=== PATIENT | male | born 1935 | race Caucasian/White ===

== ENCOUNTER 2020-12-02 12:13 | Emergency (ER) | payer MEDICARE, OTHER ==
[2005-08-25 17:40] VITALS: BP 148/78
[~2020-12-02] VITALS: Ht 165.1 cm; Wt 52.3 kg
[~2020-12-02 12:13] MED LIST: MELOXICAM; TAMULOSIN
[2020-12-02 12:18] VITALS: TEMP 97.7
[2020-12-02 12:42] LABS: BASO # 0.1 (0.0-0.2); BASO % 0.6 % (0.0-2.0); EOS # 0.1 (0.0-0.7); EOS % 1.6 % (0-4.0); GRAN # 5.8 (1.4-6.5); GRAN % 73.5 % (42.2-75.2); HEMOGLOBIN 11.8 g/dl (13.5-18.0); LYMPH # 1.3 (1.2-3.4); LYMPH % 16.4 % (20.0-51.0); MEAN CELL VOLUME 92 fl (80.0-100.0); MEAN CORPUSCULAR HEMOGLOBIN 30 pg (27.0-31.0); MEAN CORPUSCULAR HGB CONC 33 g/dl (33.0-37.0); MEAN PLATELET VOLUME 10.8 fl (7.4-10.4); MONO # 0.6 (0.1-0.6); MONO % 7.5 % (1.7-9.3); PLATELET COUNT 263 K/mm3 (130-400); RED BLOOD COUNT 3.88 M/mm3 (4.20-5.60); REDCELL DISTRIBUTION WIDTH-CV 13.2 % (11.5-14.5)
[2020-12-02 12:49] LABS: HEMATOCRIT 35.6 % (42.0-52.0)
[2020-12-02 13:05] LABS: ALANINE AMINOTRANSFERASE 10 U/L (4-49); ALBUMIN 4.2 gm/dL (3.5-5.0); ALKALINE PHOSPHATASE 48 U/L (50-136); ANION GAP 11 mmol/L (7-16); AST,SGOT 25 U/L (15-37); BILIRUBIN,TOTAL 0.5 mg/dL (0.0-1.0); BLOOD UREA NITROGEN 41 mg/dL (9-20); CALCIUM 9.6 mg/dL (8.4-10.2); CARBON DIOXIDE 27 mmol/L (22-30); CHLORIDE 92 mmol/L (98-107); CREATININE, serum 1.37 (0.66-1.25); GLUCOSE 148 mg/dL (74-106); LIPASE 197 U/L (23-300); POTASSIUM 4.6 mmol/L (3.4-5.0); SODIUM 130 mmol/L (137-145); TOTAL PROTEIN 7.2 gm/dL (6.4-8.2)
[2020-12-02 13:39] LABS: TROPONIN-I < 0.012 ng/mL (0.000-0.035)
[2020-12-02 15:25] LABS: COLLECTION METHOD CLEAN CATCH
[2020-12-02 15:36] LABS: MUCOUS Present /lpf; PH 6 (5-8); SQUAMOUS EPITHELIAL 0-2 /hpf; URINE APPEARANCE Clear; URINE BACTERIA None Seen /hpf; URINE BILIRUBIN Negative (NEGATIVE); URINE BLOOD Negative (NEGATIVE); URINE COLOR Yellow; URINE GLUCOSE Negative (NEGATIVE); URINE KETONE Trace (NEGATIVE); URINE LEUKOCYTE ESTERASE Negative (NEGATIVE); URINE NITRATE Negative (NEGATIVE); URINE PROTEIN(semi-quant) Negative (NEGATIVE)
[2020-12-02 16:22] VITALS: BP 160/81; PULSE 79
== END 2020-12-02 16:22 | disposition home or self-care (01) ==
LOC: COL.ER 12:13
PROVIDERS: Emergency Medicine
DX: G20 Parkinson's disease (principal); R53.1 Weakness; Z86.16 Personal history of COVID-19
CPT/HCPCS: J7030